=== PATIENT | female | born 1975 | race Caucasian/White ===

== ENCOUNTER → 2017-03-11 | Outpatient (CLI) | payer OTHER | LOC: KOH-I 16:43 | DX: M25.512 Pain in left shoulder (principal) | CPT/HCPCS: 73030 ==

== ENCOUNTER → 2022-04-24 | Day surgery (SDC) | payer OTHER ==
[~2022-04-24] VITALS: Ht 165.1 cm; Wt 130.2 kg
[~2022-04-24] MED LIST: ALBUTEROL2.5 MG/3 M INH; CYCLOBENZAPRINE10 MG PO; FEXOFENADINE HC60 MG PO; LOSARTAN-HCTZ1 EAC2 PO; OMEPRAZOLE40 MG PO; SIMVASTATIN20 MG PO; VITAMIN D350 MCG PO
== END | disposition home or self-care (01) ==
LOC: OR 06:55
DX: Z12.11 Encounter for screening for malignant neoplasm of colon (principal); K62.5 Hemorrhage of anus and rectum; K59.09 Other constipation; K52.9 Noninfective gastroenteritis and colitis, unspecified; M17.10 Unilateral primary osteoarthritis, unspecified knee; J44.9 Chronic obstructive pulmonary disease, unspecified; K21.9 Gastro-esophageal reflux disease without esophagitis; I10 Essential (primary) hypertension; F17.200 Nicotine dependence, unspecified, uncomplicated; Z88.0 Allergy status to penicillin; Z88.8 Allergy status to other drugs, medicaments and biological substances
CPT/HCPCS: J2370; J2704